=== PATIENT | female | born 1960 | race Caucasian/White ===

== ENCOUNTER 2021-09-22 07:35 | Emergency (ER) | payer OTHER ==
[2021-09-22 09:23] VITALS: BP 138/80
== END 2021-09-22 09:24 | disposition home or self-care (01) ==
LOC: EMS 07:37
DX: S50.11XA Contusion of right forearm, initial encounter (principal); E11.9 Type 2 diabetes mellitus without complications; E78.00 Pure hypercholesterolemia, unspecified; I10 Essential (primary) hypertension; W22.8XXA Striking against or struck by other objects, initial encounter; Y93.89 Activity, other specified; Y92.89 Other specified places as the place of occurrence of the external cause; Y99.8 Other external cause status; Z88.0 Allergy status to penicillin; Z98.890 Other specified postprocedural states
CPT/HCPCS: 99283

== ENCOUNTER 2021-10-24 09:51 | Inpatient (IN) | payer OTHER ==
[~2021-10-24] VITALS: Ht 170.2 cm; Wt 123.6 kg
[2021-10-24] MEDS ORDERED: SODIUM CHLORIDE 0.9% 1,000 ML IV ONE ×2 (10:30→21:30)
[2021-10-24 11:07] LABS: BASOPHILS % (AUTO) 0.1 % (0.0-2.0); EOSINOPHILS % (AUTO) 0.1 % (1.0-6.0); HEMATOCRIT 43.4 % (36-46); LYMPHOCYTES # (AUTO) 0.3 K/uL (1.0-4.8); LYMPHOCYTES % (AUTO) 2.1 % (22.0-44.0); MEAN CORPUSCULAR HEMOGLOBIN 29.2 pg (26.0-34.0); MEAN CORPUSCULAR HGB CONC 32.2 G/dL (31.0-37.0); MEAN CORPUSCULAR VOLUME 91 fL (80-100); MONOCYTES # (AUTO) 0.5 K/uL (0.1-1.0); MONOCYTES % (AUTO) 3.4 % (2.0-9.0); NEUTROPHILS # (AUTO) 13.8 K/uL (1.8-7.7); PLATELET COUNT (AUTO) 322 K/uL (150-450); RED BLOOD CELL COUNT(AUTO) 4.78 MIL/uL (4.00-5.20); RED CELL DISTRIBUTION WIDTH 13.3 % (11.5-14.5)
[2021-10-24 11:08] LABS: NEUTROPHILS % (AUTO) 94.3 % (40.0-70.0)
[2021-10-24 11:18] LABS: PROTHROMBIN TIME 10.3 SEC (9.4-11.6)
[2021-10-24 11:35] LABS: CALCIUM, TOTAL 9.7 mg/dL (8.8-10.5); CREATININE 1.2 mg/dL (0.60-1.30); POTASSIUM 4.1 mmol/L (3.5-5.1)
[2021-10-24 11:39] LABS: ALBUMIN 4.3 g/dL (3.4-5.0); BILIRUBIN,TOTAL 0.4 mg/dL (0.1-1.0); TOTAL PROTEIN, SERUM 8.6 g/dL (6.4-8.2)
[2021-10-24] MEDS ORDERED: LEVOFLOXACIN 750 MG/D5% WATER 150 ML IV ONE (12:15)
[2021-10-24] MEDS ORDERED: ALBUTEROL SULFATE 2.5 MG/0.5 ML NEB SOLUTION NEB PRN (13:00)
[2021-10-24] MEDS ORDERED: *CLINICAL-LEVOFLOXACIN IVPB DOSING CLINICAL ONE (13:00)
[2021-10-24] MEDS ORDERED: DEXTROSE 50%-WATER 25 GM/50 ML SYRINGE IVP PRN (13:15)
[2021-10-24] MEDS ORDERED: INSULIN LISPRO 100 UNITS/ML SQ PRN (13:15)
[2021-10-24 13:24] LABS: COVID AG,FIA SOURCE NASAL SWAB
[2021-10-24] MEDS: HEPARIN SODIUM,PORCINE 5,000 UNITS/ML VIAL SQ SCH (16:41)
[2021-10-24 18:39] VITALS: BP 131/79
[2021-10-24 19:26] LABS: GLUCOMETER DEV NAME(LOC) 5N.1C; GLUCOSE,POINT OF CARE 96 MG/DL (70-110)
[2021-10-24] MEDS: DOCUSATE SODIUM 100 MG CAPSULE PO SCH (21:00)
[2021-10-24] MEDS: ONDANSETRON HCL 4 MG/2 ML VIAL IVP PRN (21:45)
[2021-10-24 23:45] VITALS: BP 122/76
[2021-10-25 00:37] LABS: AMPHET/METH SCREEN,URINE POSITIVE (NEGATIVE); BARBITURATE SCREEN, URINE NEGATIVE (NEGATIVE); BENZODIAZEPINES SCREEN,URINE NEGATIVE (NEGATIVE); CANNABINOID SCREEN,URINE NEGATIVE (NEGATIVE); COCAINE SCREEN,URINE NEGATIVE (NEGATIVE); METHADONE SCREEN, URINE NEGATIVE (NEGATIVE); OPIATE SCREEN,URINE POSITIVE (NEGATIVE)
[2021-10-25 00:41] LABS: PHENCYCLIDINE SCREEN,URINE NEGATIVE (NEGATIVE)
[2021-10-25] MEDS: HEPARIN SODIUM,PORCINE 5,000 UNITS/ML VIAL SQ SCH ×4 (00:41→23:51)
[2021-10-25 00:45] LABS: APPEARANCE,URINE CLEAR (CLEAR); BILIRUBIN,URINE NEGATIVE (NEGATIVE); GLUCOSE, URINE (UA) NEGATIVE (NEGATIVE); KETONES,URINE NEGATIVE (NEGATIVE); LEUKOCYTE ESTERASE ,URINE NEGATIVE (NEGATIVE); NITRATE,URINE NEGATIVE (NEGATIVE); OCCULT BLOOD,URINE NEGATIVE (NEGATIVE); PROTEIN,URINE TRACE mg/dL (NEGATIVE); SPECIFIC GRAVITIY, URINE 1.031 (1.003-1.030); UROBILINOGEN,URINE <=1.0 mg/dL (<=1.0)
[2021-10-25 03:45] VITALS: BP 134/78
[2021-10-25] MEDS: ACETAMINOPHEN 325 MG TABLET PO PRN (05:52)
[2021-10-25 06:06] LABS: GLUCOMETER DEV NAME(LOC) 5S.2B; GLUCOSE,POINT OF CARE 95 MG/DL (70-110)
[2021-10-25 08:00] VITALS: BP 126/76
[2021-10-25] MEDS: ATORVASTATIN CALCIUM 20 MG TABLET PO SCH (09:26)
[2021-10-25] MEDS: ASPIRIN 81 MG CHEWABLE TABLET PO SCH (09:26)
[2021-10-25] MEDS: FAMOTIDINE 20 MG TABLET PO SCH (09:27)
[2021-10-25] MEDS: DOCUSATE SODIUM 100 MG CAPSULE PO SCH ×2 (09:27→20:49)
[2021-10-25 11:51] LABS: GLUCOMETER DEV NAME(LOC) 5N.1C; GLUCOSE,POINT OF CARE 87 MG/DL (70-110)
[2021-10-25 12:00] VITALS: BP 119/70
[2021-10-25] MEDS ORDERED: SODIUM CHLORIDE 0.9% 250 ML IV ONE (12:40)
[2021-10-25] MEDS: VENLAFAXINE HCL 75 MG ER CAPSULE PO SCH (12:47)
[2021-10-25] MEDS: LEVOFLOXACIN 750 MG/D5% WATER 150 ML IV SCH (12:49)
[2021-10-25 16:00] VITALS: BP 116/70
[2021-10-25 17:21] LABS: GLUCOMETER DEV NAME(LOC) 5S.1B; GLUCOSE,POINT OF CARE 89 MG/DL (70-110)
[2021-10-25 20:41] LABS: GLUCOMETER DEV NAME(LOC) 5S.1B; GLUCOSE,POINT OF CARE 98 MG/DL (70-110)
[2021-10-25] MEDS: ONDANSETRON HCL 4 MG/2 ML VIAL IVP PRN (20:49)
[2021-10-25] MEDS: BUDESONIDE 0.5 MG/2 ML NEB SOLUTION NEB SCH (21:11)
[2021-10-26 06:22] LABS: GLUCOMETER DEV NAME(LOC) 5S.1B; GLUCOSE,POINT OF CARE 101 MG/DL (70-110)
[2021-10-26 08:00] VITALS: BP 118/68
[2021-10-26] MEDS: BUDESONIDE 0.5 MG/2 ML NEB SOLUTION NEB SCH ×2 (08:27→20:18)
[2021-10-26] MEDS: ATORVASTATIN CALCIUM 20 MG TABLET PO SCH (09:14)
[2021-10-26] MEDS: VENLAFAXINE HCL 75 MG ER CAPSULE PO SCH (09:14)
[2021-10-26] MEDS: HEPARIN SODIUM,PORCINE 5,000 UNITS/ML VIAL SQ SCH ×3 (09:14→23:51)
[2021-10-26] MEDS: DOCUSATE SODIUM 100 MG CAPSULE PO SCH ×2 (09:14→20:49)
[2021-10-26] MEDS: ASPIRIN 81 MG CHEWABLE TABLET PO SCH (09:15)
[2021-10-26] MEDS: FAMOTIDINE 20 MG TABLET PO SCH (09:15)
[2021-10-26] MEDS ORDERED: SODIUM CHLORIDE 0.9% 250 ML IV ONE (10:47)
[2021-10-26] MEDS: LEVOFLOXACIN 750 MG/D5% WATER 150 ML IV SCH (11:30)
[2021-10-26 11:46] VITALS: BP 129/78
[2021-10-26 12:01] LABS: GLUCOMETER DEV NAME(LOC) 5S.1B; GLUCOSE,POINT OF CARE 104 MG/DL (70-110)
[2021-10-26 16:16] VITALS: BP 133/84
[2021-10-26 16:42] LABS: GLUCOMETER DEV NAME(LOC) 5N.1C; GLUCOSE,POINT OF CARE 82 MG/DL (70-110)
[2021-10-26 19:31] VITALS: BP 141/83
[2021-10-26 23:30] VITALS: BP 148/84
[2021-10-27 04:42] VITALS: BP 145/85
[2021-10-27 06:06] LABS: GLUCOMETER DEV NAME(LOC) 5S.1B; GLUCOSE,POINT OF CARE 95 MG/DL (70-110)
[2021-10-27 08:08] VITALS: BP 150/91
[2021-10-27] MEDS: BUDESONIDE 0.5 MG/2 ML NEB SOLUTION NEB SCH ×2 (08:42→20:12)
[2021-10-27] MEDS: HEPARIN SODIUM,PORCINE 5,000 UNITS/ML VIAL SQ SCH ×3 (09:14→23:48)
[2021-10-27] MEDS: DOCUSATE SODIUM 100 MG CAPSULE PO SCH ×2 (09:15→22:02)
[2021-10-27] MEDS: ATORVASTATIN CALCIUM 20 MG TABLET PO SCH (09:16)
[2021-10-27] MEDS: VENLAFAXINE HCL 75 MG ER CAPSULE PO SCH (09:16)
[2021-10-27] MEDS: ASPIRIN 81 MG CHEWABLE TABLET PO SCH (09:16)
[2021-10-27] MEDS: FAMOTIDINE 20 MG TABLET PO SCH (09:16)
[2021-10-27 11:33] VITALS: BP 144/86
[2021-10-27] MEDS: LEVOFLOXACIN 750 MG/D5% WATER 150 ML IV SCH (12:01)
[2021-10-27 15:11] LABS: GLUCOMETER DEV NAME(LOC) 5S.1B; GLUCOSE,POINT OF CARE 123 MG/DL (70-110)
[2021-10-27 15:49] VITALS: BP 135/86
[2021-10-27 20:11] VITALS: BP 152/81
[2021-10-27 20:46] LABS: GLUCOMETER DEV NAME(LOC) 5S.1B; GLUCOSE,POINT OF CARE 114 MG/DL (70-110)
[2021-10-27 22:22] LABS: GLUCOMETER DEV NAME(LOC) 5S.1B; GLUCOSE,POINT OF CARE 108 MG/DL (70-110)
[2021-10-27] MEDS: ACETAMINOPHEN 325 MG TABLET PO PRN (23:46)
[2021-10-28 00:42] VITALS: BP 115/71
[2021-10-28 05:30] VITALS: BP 152/87
[2021-10-28 06:31] LABS: GLUCOMETER DEV NAME(LOC) 5S.1B; GLUCOSE,POINT OF CARE 108 MG/DL (70-110)
[2021-10-28 07:10] VITALS: BP 143/89
[2021-10-28] MEDS: BUDESONIDE 0.5 MG/2 ML NEB SOLUTION NEB SCH (08:32)
[2021-10-28] MEDS: HEPARIN SODIUM,PORCINE 5,000 UNITS/ML VIAL SQ SCH (08:59)
[2021-10-28] MEDS: DOCUSATE SODIUM 100 MG CAPSULE PO SCH (08:59)
[2021-10-28] MEDS: VENLAFAXINE HCL 75 MG ER CAPSULE PO SCH (08:59)
[2021-10-28] MEDS: FAMOTIDINE 20 MG TABLET PO SCH (08:59)
[2021-10-28] MEDS: ASPIRIN 81 MG CHEWABLE TABLET PO SCH (08:59)
[2021-10-28] MEDS: ATORVASTATIN CALCIUM 20 MG TABLET PO SCH (08:59)
[2021-10-28 10:52] VITALS: BP 140/89
[2021-10-28] MEDS: LEVOFLOXACIN 750 MG/D5% WATER 150 ML IV SCH (11:32)
[2021-10-28 12:02] LABS: GLUCOMETER DEV NAME(LOC) 5S.1B; GLUCOSE,POINT OF CARE 90 MG/DL (70-110)
[2021-10-28] MEDS ORDERED: LEVO-72 PO (12:28)
[2021-10-28 12:59] LABS: HEMATOCRIT 38.5 % (36-46); HEMOGLOBIN 12.9 g/dL (12.0-16.0); LYMPHOCYTES # (AUTO) 0.9 K/uL (1.0-4.8); LYMPHOCYTES % (AUTO) 14.3 % (22.0-44.0); MEAN CORPUSCULAR HEMOGLOBIN 29.1 pg (26.0-34.0); MEAN CORPUSCULAR HGB CONC 33.4 G/dL (31.0-37.0); MEAN CORPUSCULAR VOLUME 87 fL (80-100); MONOCYTES # (AUTO) 0.4 K/uL (0.1-1.0); MONOCYTES % (AUTO) 6.1 % (2.0-9.0); NEUTROPHILS # (AUTO) 4.7 K/uL (1.8-7.7); NEUTROPHILS % (AUTO) 76.6 % (40.0-70.0); PLATELET COUNT (AUTO) 318 K/uL (150-450); RED BLOOD CELL COUNT(AUTO) 4.42 MIL/uL (4.00-5.20); RED CELL DISTRIBUTION WIDTH 12.5 % (11.5-14.5)
[2021-10-28 13:19] LABS: ANION GAP 6 mmol/L (8-16); CALCIUM, TOTAL 9.4 mg/dL (8.8-10.5); CARBON DIOXIDE 33 mmol/L (22-29); CHLORIDE 101 mmol/L (98-107); CREATININE 0.74 mg/dL (0.60-1.30); GLUCOSE,RANDOM 150 mg/dL (70-110); POTASSIUM 3.9 mmol/L (3.5-5.1); SODIUM SERUM 140 mmol/L (136-145); UREA NITROGEN, BLOOD 7 mg/dL (7-18)
[2021-10-28 13:20] LABS: GLOMERULAR FILTR. RATE CALC > 60 mL/min (>60)
== END 2021-10-28 15:55 | disposition home or self-care (01) | DRG 817 ==
LOC: EMS 09:51 → 5N 17:13
PROVIDERS: ADMIT Internal Medicine; ATTEND Internal Medicine
DX: T40.2X2A Poisoning by other opioids, intentional self-harm, initial encounter (principal); J96.01 Acute respiratory failure with hypoxia; J69.0 Pneumonitis due to inhalation of food and vomit; E11.9 Type 2 diabetes mellitus without complications; Z20.822 Contact with and (suspected) exposure to COVID-19; E78.00 Pure hypercholesterolemia, unspecified; E66.2 Morbid (severe) obesity with alveolar hypoventilation; F33.2 Major depressive disorder, recurrent severe without psychotic features; G89.29 Other chronic pain; F15.10 Other stimulant abuse, uncomplicated; F11.20 Opioid dependence, uncomplicated; F17.210 Nicotine dependence, cigarettes, uncomplicated; I10 Essential (primary) hypertension; J44.1 Chronic obstructive pulmonary disease with (acute) exacerbation; Z86.73 Personal history of transient ischemic attack (TIA), and cerebral infarction without residual deficits; Z68.41 Body mass index [BMI] 40.0-44.9, adult; Z88.0 Allergy status to penicillin; Z88.2 Allergy status to sulfonamides; Y92.89 Other specified places as the place of occurrence of the external cause; Z71.6 Tobacco abuse counseling; Z82.49 Family history of ischemic heart disease and other diseases of the circulatory system
CPT/HCPCS: 71045; 71250; 80048; 80053; 80307; 81003; 82962; 83735; 83880; 84443; 84484; 85025; 85610; 85730; 87040; 93005; 93306; 94640; 94660; 99285; G0480; J1644; J1956; J2405; J7030; J7050; 36415-L1; 36415-TC; J7613

== ENCOUNTER 2022-07-23 19:27 | Emergency (ER) | payer OTHER ==
[~2022-07-23] VITALS: Ht 170.2 cm; Wt 123.0 kg
[~2022-07-23 19:27] MED LIST: LEVO-72 PO
[2022-07-23 22:41] VITALS: BP 141/98
[2022-07-23] MEDS ORDERED: IBUPROFEN 600 MG TABLET PO ONE (23:00)
== END 2022-07-24 00:14 | disposition home or self-care (01) ==
LOC: EMS 19:28
DX: S63.501A Unspecified sprain of right wrist, initial encounter (principal); M85.641 Other cyst of bone, right hand; E11.9 Type 2 diabetes mellitus without complications; E78.00 Pure hypercholesterolemia, unspecified; I10 Essential (primary) hypertension; F17.210 Nicotine dependence, cigarettes, uncomplicated; Z86.73 Personal history of transient ischemic attack (TIA), and cerebral infarction without residual deficits; Z88.1 Allergy status to other antibiotic agents; Z88.0 Allergy status to penicillin; W19.XXXA Unspecified fall, initial encounter; Y93.89 Activity, other specified; Y92.098 Other place in other non-institutional residence as the place of occurrence of the external cause; Y99.8 Other external cause status
CPT/HCPCS: 73200; 99284; 73110-TC; Z7502; Z7610

== ENCOUNTER 2022-09-09 07:23 | Emergency (ER) | payer OTHER ==
[~2022-09-09] VITALS: Ht 180.3 cm; Wt 127.3 kg
[2022-09-09 08:13] VITALS: TEMP 98.5
[2022-09-09 08:38] LABS: BASOPHILS % (AUTO) 0.8 % (0.0-2.0); EOSINOPHILS % (AUTO) 0.6 % (1.0-6.0); HEMATOCRIT 37.4 % (36-46); HEMOGLOBIN 12.5 g/dL (12.0-16.0); LYMPHOCYTES # (AUTO) 0.5 K/uL (1.0-4.8); LYMPHOCYTES % (AUTO) 7.4 % (22.0-44.0); MEAN CORPUSCULAR HEMOGLOBIN 29.3 pg (26.0-34.0); MEAN CORPUSCULAR HGB CONC 33.4 G/dL (31.0-37.0); MEAN CORPUSCULAR VOLUME 88 fL (80-100); MONOCYTES # (AUTO) 0.7 K/uL (0.1-1.0); MONOCYTES % (AUTO) 10.7 % (2.0-9.0); NEUTROPHILS # (AUTO) 5.6 K/uL (1.8-7.7); NEUTROPHILS % (AUTO) 80.5 % (40.0-70.0); PLATELET COUNT (AUTO) 275 K/uL (150-450); RED BLOOD CELL COUNT(AUTO) 4.26 MIL/uL (4.00-5.20); RED CELL DISTRIBUTION WIDTH 13.4 % (11.5-14.5)
[2022-09-09 08:46] LABS: ANION GAP 7 mmol/L (8-16); CALCIUM, TOTAL 9.4 mg/dL (8.8-10.5); CARBON DIOXIDE 30 mmol/L (22-29); CHLORIDE 100 mmol/L (98-107); CREATININE 0.74 mg/dL (0.60-1.30); GLOMERULAR FILTR. RATE CALC > 60 mL/min (>60); GLUCOSE,RANDOM 108 mg/dL (70-110); POTASSIUM 3.7 mmol/L (3.5-5.1); SODIUM SERUM 137 mmol/L (136-145)
[2022-09-09 08:54] LABS: PROTHROMBIN TIME 10.2 SEC (9.4-11.6)
[2022-09-09 09:06] LABS: B-TYPE NATRIURETIC PEPTIDE 23 pg/mL (0-100)
[2022-09-09 09:12] LABS: ALANINE AMINOTRANSFERASE 20 U/L (12-78); ALBUMIN 3.4 g/dL (3.4-5.0); ALKALINE PHOSPHATASE 109 U/L (46-116); ASPARTATE AMINOTRANSFERASE 16 U/L (15-37); BILIRUBIN,TOTAL 0.4 mg/dL (0.1-1.0); CREATINE KINASE, TOTAL ONLY 80 U/L (26-192); TOTAL PROTEIN, SERUM 7.3 g/dL (6.4-8.2)
[2022-09-09 10:39] LABS: AMPHET/METH SCREEN,URINE NEGATIVE (NEGATIVE); BARBITURATE SCREEN, URINE NEGATIVE (NEGATIVE); BENZODIAZEPINES SCREEN,URINE NEGATIVE (NEGATIVE); CANNABINOID SCREEN,URINE NEGATIVE (NEGATIVE); COCAINE SCREEN,URINE NEGATIVE (NEGATIVE); METHADONE SCREEN, URINE NEGATIVE (NEGATIVE); OPIATE SCREEN,URINE NEGATIVE (NEGATIVE); PHENCYCLIDINE SCREEN,URINE NEGATIVE (NEGATIVE)
[2022-09-09 10:59] LABS: APPEARANCE,URINE CLEAR (CLEAR); BILIRUBIN,URINE NEGATIVE (NEGATIVE); GLUCOSE, URINE (UA) NEGATIVE (NEGATIVE); KETONES,URINE NEGATIVE (NEGATIVE); LEUKOCYTE ESTERASE ,URINE MODERATE (NEGATIVE); NITRATE,URINE POSITIVE (NEGATIVE); OCCULT BLOOD,URINE TRACE (NEGATIVE); PROTEIN,URINE TRACE mg/dL (NEGATIVE); SPECIFIC GRAVITIY, URINE 1.012 (1.003-1.030); UROBILINOGEN,URINE <=1.0 mg/dL (<=1.0)
[2022-09-09 11:04] LABS: BACTERIA,URINE Many /HPF (None Seen); RBC,URINE 0-2 /HPF (0-2); SQUAMOUS EPITHELIAL CELL,UR Few /LPF (None Seen); WBC,URINE 26-50 /HPF (0-5)
[2022-09-09] MEDS ORDERED: LEVOFLOXACIN 750 MG/D5% WATER 150 ML IV ONE (11:45)
[2022-09-09 15:48] VITALS: BP 130/82; PULSE 68; RESP 18
== END 2022-09-09 16:04 | disposition home or self-care (01) ==
LOC: EMS 07:23
DX: N39.0 Urinary tract infection, site not specified (principal); R07.9 Chest pain, unspecified; Z86.73 Personal history of transient ischemic attack (TIA), and cerebral infarction without residual deficits; Z88.0 Allergy status to penicillin; Z88.2 Allergy status to sulfonamides
CPT/HCPCS: 99285; 96365; 71045; 80053; 82550; 83880; 84484; 85025; 85610; 85730; 36415; 87086; 87186; 93005; 81001; 80307 ×2; J1956